=== PATIENT | male | born 1955 | race African-American/Black ===

== ENCOUNTER 2017-12-01 08:49 | Emergency (ER) | payer MEDICAID ==
[~2017-12-01] VITALS: Ht 182.9 cm; Wt 91.0 kg
[~2017-12-01 08:49] MED LIST: CARB200T PO; DOXY150T PO; HYDR-3511 PO; HYDR25TA PO; LISI10TA5 PO; NORVASC PO; WATER PILL
[2017-12-01 12:18] VITALS: BP 145/82
== END 2017-12-01 12:24 | disposition home or self-care (01) ==
LOC: ER 09:10
DX: R04.0 Epistaxis (principal); I10 Essential (primary) hypertension; Z79.82 Long term (current) use of aspirin; F17.210 Nicotine dependence, cigarettes, uncomplicated; F20.9 Schizophrenia, unspecified; Z79.899 Other long term (current) drug therapy
CPT/HCPCS: 30901; 99284; Z7610

== ENCOUNTER 2017-12-03 17:50 | Emergency (ER) | payer MEDICAID ==
[~2017-12-03] VITALS: Ht 188 cm; Wt 82.0 kg
[2017-12-03 18:13] VITALS: BP 167/94
== END 2017-12-03 19:26 | disposition home or self-care (01) ==
LOC: ER 19:21
DX: R04.0 Epistaxis (principal); I10 Essential (primary) hypertension
CPT/HCPCS: 99281